=== PATIENT | female | born 1990 | race Caucasian/White ===

== ENCOUNTER 2017-02-21 11:04 | Day surgery (SDC) | payer OTHER ==
[2017-02-21 12:46] VITALS: BMI 36.0
[2017-02-21 12:55] VITALS: BP 126/87; TEMP 98.6
--- NOTE | 2017-02-21 13:24 | PDOC.EVN ---
Event Note - Event Note Event Note: See handwritten progress note. [address] week patient of Dr Maria Elena Hilario here for NST. NST reactive. BPs ok. OK for outpatient eval on Thursday to schedule induction
== END 2017-02-21 13:40 | disposition home or self-care (01) ==
LOC: L&D/OP 11:04
PROVIDERS: ATTEND Family Medicine
DX: Z36.89 Encounter for other specified antenatal screening (principal); Z3A.41 41 weeks gestation of pregnancy
CPT/HCPCS: 59025

== ENCOUNTER 2017-02-23 03:10 | Inpatient (IN) | payer OTHER ==
[2017-02-23 03:35] VITALS: BMI 36.0
[2017-02-23 04:15] LABS: Hematocrit 38.8 % (36.0-47.0); Mean Platelet Volume 6.7 fL (7.4-10.4); Red Blood Cell (RBC) Count 4.24 mill/uL (4.20-5.40); White Blood Cell (WBC) Count 16.3 thou/uL (4.8-10.8)
[2017-02-23] MEDS ORDERED: Promethazine HCl 25 MG/ML VIAL IM PRN (04:15)
[2017-02-23] MEDS ORDERED: Ondansetron HCl/PF 4 MG/2 ML Vial IVP PRN ×2 (04:15→22:29)
[2017-02-23] MEDS ORDERED: Lidocaine 1% (PF) 30 ML VIAL SC PRN (04:30)
[2017-02-23] MEDS ORDERED: LR 500 ML/Oxytocin 10 units 500 ML IV SCH ×2 (04:30)
[2017-02-23] MEDS: Lactated Ringer's 1,000 ML IV SCH ×3 (09:30→16:20)
[2017-02-23] MEDS ORDERED: Fentanyl 4 mcg/Marc 0.1% Cadd 100 ML ONE (09:47)
[2017-02-23] MEDS ORDERED: Fentanyl 100 MCG/2 ML VIAL ONE (10:58)
[2017-02-23] MEDS ORDERED: Lactated Ringer's 500 ML IV PRN (11:08)
[2017-02-23] MEDS ORDERED: Eucerin (Mineral Oil/Petrolatum,White) 30 gm Jar TOP PRN (11:08)
[2017-02-23] MEDS ORDERED: ePHEDrine/0.9% NaCl/PF SYRINGE 50 mg/10 ml SLOW IVP PRN (11:08)
[2017-02-23] MEDS ORDERED: Acetaminophen 325 MG TAB PO PRN (11:08)
[2017-02-23] MEDS ORDERED: Naloxone HCl 0.4 mg/ml Vial IVP PRN ×2 (11:08)
[2017-02-23] MEDS ORDERED: diphenhydrAMINE 50 MG/ML VIAL IVP PRN (11:08)
[2017-02-23] MEDS ORDERED: Communication Order-Pharmacy FS SCH (11:15)
[2017-02-23] MEDS ORDERED: Fentanyl 4mcg/Marcaine 0.1% Cassette 100 ML EPIDURAL SCH (11:15)
[2017-02-23] MEDS: LR / Pitocin 40 units/1000 ml 40 UNITS/1,000 ML BAG IV SCH ×2 (19:40→22:21)
[2017-02-23] MEDS: Misoprostol 200 MCG TAB ONE ×3 (20:00→22:22)
[2017-02-23] MEDS ORDERED: diphenhydrAMINE 25 MG CAP PO PRN (22:29)
[2017-02-23] MEDS ORDERED: traMADol HCl 50 MG TAB PO PRN (22:29)
[2017-02-23] MEDS ORDERED: Lanolin Ointment 7 GM TUBE TOP PRN (22:29)
[2017-02-23] MEDS ORDERED: Benzocaine/Menthol 20-0.5% 60 ML CAN TOP PRN (22:29)
[2017-02-23] MEDS ORDERED: Bisacodyl 10 MG SUPP PR PRN (22:29)
[2017-02-23] MEDS ORDERED: Preparation H Ointment 28 GM TUBE PR PRN (22:29)
[2017-02-23] MEDS ORDERED: Milk Of Magnesia 30 ML UDCUP PO PRN (22:29)
[2017-02-23] MEDS ORDERED: LR / Pitocin 40 units/1000 ml 1,000 ML IV SCH (22:29)
[2017-02-23] MEDS ORDERED: Ibuprofen 800 MG TAB PO SCH (22:45)
[2017-02-23] MEDS ORDERED: Docusate (Surfak) 240 MG CAP PO SCH (22:45)
[2017-02-23] MEDS ORDERED: Prenatal Vitamin 1 TAB PO SCH (22:45)
[2017-02-24] MEDS: Ibuprofen 800 MG TAB PO SCH ×5 (00:57→21:30)
[2017-02-24 05:12] LABS: Hematocrit 31.8 % (36.0-47.0); Mean Platelet Volume 6.8 fL (7.4-10.4); Red Blood Cell (RBC) Count 3.42 mill/uL (4.20-5.40); White Blood Cell (WBC) Count 17.3 thou/uL (4.8-10.8)
[2017-02-24] MEDS ORDERED: Adacel (T-DAP) 0.5 ML VIAL IM ONE (09:00)
[2017-02-24] MEDS: Ferrous Sulfate 325 MG TAB PO SCH ×2 (09:21→18:44)
[2017-02-24] MEDS: Prenatal Vitamin 1 TAB PO SCH (09:21)
[2017-02-24] MEDS: Docusate (Surfak) 240 MG CAP PO SCH ×2 (09:22→21:30)
[2017-02-24] MEDS ORDERED: Bupivacaine/Epinephrine 0.25% 30 ML VIAL ONE (15:18)
[2017-02-25] MEDS: Ibuprofen 800 MG TAB PO SCH (05:57)
[2017-02-25 07:48] VITALS: BP 116/68; TEMP 98.1
[2017-02-25] MEDS: Ferrous Sulfate 325 MG TAB PO SCH (09:21)
[2017-02-25] MEDS: Docusate (Surfak) 240 MG CAP PO SCH (09:22)
[2017-02-25] MEDS: Prenatal Vitamin 1 TAB PO SCH (09:22)
== END 2017-02-25 12:55 | disposition home or self-care (01) | DRG 775 ==
LOC: L&D/OP 03:10 → L&D 03:44 → 3SW 22:15
PROVIDERS: ADMIT Family Medicine; ATTEND Family Medicine
PROC: 10E0XZZ Delivery of Products of Conception, External Approach (ICD-10-PCS; principal; 2017-02-23)
PROC: 0KQM0ZZ Repair Perineum Muscle, Open Approach (ICD-10-PCS; 2017-02-23)
DX: O48.0 Post-term pregnancy (principal); O41.03X0 Oligohydramnios, third trimester, not applicable or unspecified; O99.354 Diseases of the nervous system complicating childbirth; Z3A.41 41 weeks gestation of pregnancy; O70.1 Second degree perineal laceration during delivery; Z87.442 Personal history of urinary calculi; G25.81 Restless legs syndrome
CPT/HCPCS: 36415; 59025; 85027; 86780; 87340; J2001; J2405; J3010; J7120

== ENCOUNTER 2018-08-28 08:04 | Inpatient (IN) | payer OTHER ==
[2018-08-28] MEDS ORDERED: Ondansetron PF 4 MG/2 ML Vial IVP PRN (08:54)
[2018-08-28] MEDS ORDERED: Ibuprofen 800 MG TAB PO PRN (08:54)
[2018-08-28] MEDS ORDERED: Docusate 100 MG CAP PO PRN (08:54)
[2018-08-28] MEDS ORDERED: Promethazine HCl 25 MG/ML VIAL IM PRN (08:54)
[2018-08-28] MEDS ORDERED: NS / Oxytocin 40 units/1000ml 1,000 ML IV PRN (08:54)
[2018-08-28] MEDS ORDERED: Acetaminophen 500 MG TAB PO PRN (08:54)
[2018-08-28] MEDS ORDERED: Lidocaine 1% (PF) 30 ML VIAL SC PRN (08:54)
[2018-08-28 09:52] VITALS: BMI 35.2
[2018-08-28 10:11] LABS: Hemoglobin 13.5 g/dL (12.0-16.0); Mean Corpuscular HGB CONC 35.4 g/dL (32.0-36.0); Mean Corpuscular Hemoglobin 31.7 pg (27.0-31.0); Mean Corpuscular Volume 89.6 fL (78.0-98.0); Mean Platelet Volume 6.9 fL (7.4-10.4); Platelet Count 254 thou/uL (130-400); RBC Distribution Width 12.1 % (11.5-14.5); Red Blood Cell (RBC) Count 4.26 mill/uL (4.20-5.40); White Blood Cell (WBC) Count 16.5 thou/uL (4.8-10.8)
[2018-08-28 10:50] LABS: HBSAg Index 0.29 S/CO (0-0.99); Hep B Surf Ag Non-Reactive S/CO (NonReactive); Syphilis Antibody Nonreactive (Nonreactive); Syphilis Antibody Index 0.03 S/CO (<1.00 Non-Reactive)
[2018-08-28] MEDS ORDERED: Lidocaine 1% (PF) 30 ML VIAL ONE (12:38)
[2018-08-28] MEDS ORDERED: Milk Of Magnesia 30 ML UDCUP PO PRN ×2 (13:30→13:38)
[2018-08-28] MEDS ORDERED: Bisacodyl 10 MG SUPP PR PRN ×2 (13:30→13:38)
[2018-08-28] MEDS ORDERED: Adacel (T-DAP) 0.5 ML SYRINGE IM ONE (13:30)
[2018-08-28] MEDS ORDERED: Lanolin Ointment 7 GM TUBE TOP PRN (13:30)
[2018-08-28] MEDS ORDERED: NS / Oxytocin 40 units/1000ml 1,000 ML IV SCH ×2 (13:30→13:38)
[2018-08-28] MEDS ORDERED: Misoprostol 200 MCG TAB VAG PRN ×2 (13:30→13:38)
[2018-08-28] MEDS ORDERED: Benzocaine-Menthol 82.5 ML CAN TOP PRN (13:38)
[2018-08-28] MEDS ORDERED: Ferrous Sulfate 325 MG TAB PO SCH (17:00)
[2018-08-28] MEDS: Ferrous Sulfate 325 MG TAB PO SCH (17:09)
--- NOTE | 2018-08-28 19:09 | OP ---
DATE OF PROCEDURE: 08/28/2018 PREOPERATIVE DIAGNOSIS: Term . POSTOPERATIVE DIAGNOSIS: Term . PROCEDURE PERFORMED: Spontaneous vaginal delivery. ANESTHESIA: None. DESCRIPTION OF PROCEDURE: This 28-year-old white female was taken to the delivery room complete and pushing. Prepped and draped sterilely. Delivered a baby girl, Apgars 8 at one minute and 9 at five minutes. Baby breathed and cried vigorously upon delivery. Delivered the placenta, 3-vessel intact. No lacerations. Estimated blood loss was 300 mL. Job ID: [id number]
[2018-08-28] MEDS ORDERED: Docusate Calcium (SURFAK) 240 MG CAP PO SCH (21:00)
[2018-08-28] MEDS: Ibuprofen 800 MG TAB PO SCH (21:49)
[2018-08-28] MEDS: Docusate Calcium (SURFAK) 240 MG CAP PO SCH (21:50)
[2018-08-29] MEDS ORDERED: Sodium Chloride 0.9% 10 ML ONE (01:00)
[2018-08-29] MEDS: Ibuprofen 800 MG TAB PO SCH ×2 (06:08→15:47)
[2018-08-29 06:51] LABS: Hemoglobin 12.9 g/dL (12.0-16.0); Mean Corpuscular HGB CONC 34.5 g/dL (32.0-36.0); Mean Corpuscular Hemoglobin 31.6 pg (27.0-31.0); Mean Corpuscular Volume 91.8 fL (78.0-98.0); Mean Platelet Volume 7.3 fL (7.4-10.4); Platelet Count 247 thou/uL (130-400); RBC Distribution Width 12.4 % (11.5-14.5); Red Blood Cell (RBC) Count 4.07 mill/uL (4.20-5.40); White Blood Cell (WBC) Count 16.7 thou/uL (4.8-10.8)
[2018-08-29] MEDS: Docusate Calcium (SURFAK) 240 MG CAP PO SCH (07:29)
[2018-08-29] MEDS ORDERED: Prenatal Vitamin 1 TAB PO SCH ×2 (09:00)
[2018-08-29 10:39] VITALS: BP 114/66; TEMP 97.8
[2018-08-29] MEDS: Ferrous Sulfate 325 MG TAB PO SCH (10:40)
== END 2018-08-29 17:10 | disposition home or self-care (01) | DRG 807 ==
LOC: L&D/OP 08:04 → L&D-LIB 09:05 → 3SW 14:47
PROVIDERS: ADMIT Family Medicine; ATTEND Family Medicine
PROC: 10E0XZZ Delivery of Products of Conception, External Approach (ICD-10-PCS; principal; 2018-08-28)
DX: O80 Encounter for full-term uncomplicated delivery (principal); Z37.0 Single live birth; Z3A.40 40 weeks gestation of pregnancy
CPT/HCPCS: 36415; 85027; 86780; 86850; 86900; 86901; 87340; 99285; J2001

== ENCOUNTER 2021-02-25 15:04 | Outpatient (CLI) | payer OTHER | END 2021-02-25 15:05 | disposition home or self-care (01) | LOC: BICULT 15:04 | PROVIDERS: ATTEND Family Medicine | DX: R22.1 Localized swelling, mass and lump, neck (principal); E04.2 Nontoxic multinodular goiter | CPT/HCPCS: 76536 ==